=== PATIENT | male | born 1990 | race African-American/Black ===

== ENCOUNTER 2021-04-30 01:02 | Inpatient (IN) | payer OTHER ==
[~2021-04-30] VITALS: Ht 172.7 cm; Wt 49.0 kg
--- NOTE | 2021-04-30 01:10 | NUR ---
Pt BIB RA from [facility]. per EMS, tachycardia in 130s. pt is uncooperative. requesting orange juice and ice.
--- NOTE | 2021-04-30 01:16 | NUR ---
Dr. Gray at bedside, MSE in progress.
[2021-04-30 02:21] LABS: ABG BASE EXCESS 2.2 mmol/L; ABG PCO2 33.2 mmHg (35.0-45.0); ABG PH 7.495 (7.350-7.450); ABG PO2 74.1 mmHg (75.0-100.0); ABG SITE LEFT RADIAL; ABG TOTAL HEMOGLOBIN 13.2 G/dL (13.5-18.0); MetHb 0.2 % (0.0-1.5); VENT MODE Nasal Cannula
[2021-04-30] MEDS ORDERED: CEFTRIAXONE 1 G in IV DEXTROSE 5% 50 ML IV ONE (02:30)
[2021-04-30] MEDS ORDERED: IV NS 1000 ML 1,000 ML IV ONE (02:30)
[2021-04-30] MEDS ORDERED: AZITHROMYCIN IV 500 MG in IV DEXTROSE 5% 250 ML IV ONE (02:30)
[2021-04-30] MEDS ORDERED: MORPHINE SULFATE 2 MG/1 ML DISP.SYRIN IV ONE (02:45)
[2021-04-30] MEDS ORDERED: CEFTRIAXONE /D5W 50ML IVPB **ER PYXIS IV ONE (02:45)
[2021-04-30 02:49] LABS: CARBON DIOXIDE 25 mmol/L (21-32); CHLORIDE 92 mmol/L (98-107); CREATININE 1.4 mg/dL (0.6-1.3); GLUCOSE 145 mg/dL (74-106); POTASSIUM 3.6 mmol/L (3.5-5.1); UREA NITROGEN, BLOOD 27 mg/dL (7-18)
[2021-04-30] MEDS ORDERED: MORPHINE SULFATE 2 MG/1 ML DISP.SYRIN ONE (02:52)
[2021-04-30 03:01] LABS: ALANINE AMINOTRANSFERASE 14 U/L (16-63); ALKALINE PHOSPHATASE 583 U/L (50-136); ASPARTATE AMINOTRANSFERASE 12 U/L (15-37); BILIRUBIN,TOTAL 1.1 mg/dL (0.2-1.0); CREATINE KINASE, TOTAL 34 U/L (39-308); LACTATE DEHYDROGENASE 375 U/L (85-227); TOTAL PROTEIN, SERUM 9.1 g/dL (6.4-8.2)
[2021-04-30 03:16] LABS: HEMATOCRIT 40.7 % (36.7-47.1); MEAN CORPUSCULAR HEMOGLOBIN 32.2 uug (23.8-33.4); MEAN CORPUSCULAR VOLUME 96.9 fL (73.0-96.2); PLATELET COUNT (AUTO) 155 K/uL (152-348)
[2021-04-30] MEDS ORDERED: ACETAMINOPHEN ES 500 MG TABLET PO ONE (04:00)
[2021-04-30] MEDS ORDERED: AZITHROMYCIN 500MG/ D5W 250ML IVPB **ER PYXIS ONLY IV ONE (04:42)
[2021-04-30] MEDS ORDERED: ACETAMINOPHEN ES 500 MG TABLET ONE (04:42)
[2021-04-30] MEDS ORDERED: ONDANSETRON 4 MG/2 ML VIAL IV PRN (05:00)
[2021-04-30] MEDS ORDERED: ACETAMINOPHEN 325 MG TABLET PO PRN (05:00)
[2021-04-30] MEDS ORDERED: MAGNESIUM HYDROXIDE 30 ML LIQUID UDC PO PRN (05:00)
[2021-04-30] MEDS ORDERED: REMEDY ESSENTIAL ZINC PASTE 113 GM TP PRN (05:00)
[2021-04-30 05:33] LABS: *BILIRUBIN,URIN 1+ (NEGATIVE); *BLOOD, URINE NEGATIVE (NEGATIVE); *CLARITY,URINE HAZY (CLEAR); *COLOR,URINE AMBER (YELLOW); *KETONES,URINE 1+ (NEGATIVE); LEUKOCYTE ESTERASE ,URINE NEGATIVE (NEGATIVE); NITRITE, URINE NEGATIVE (NEGATIVE); PH,URINE 5.5 (5.0-8.0); UGLUCOSE NEGATIVE (NEGATIVE)
[2021-04-30 05:35] LABS: *AMPHETAMINE, URINE POSITIVE (NEGATIVE); *CANNABINOID, URINE NEGATIVE (NEGATIVE); *COCCAINE, URINE NEGATIVE (NEGATIVE); *OPIATE, URINE NEGATIVE (NEGATIVE); *PHENCYCLIDINE SCREEN,URINE NEGATIVE (NEGATIVE)
[2021-04-30 05:43] LABS: BACTERIA,URINE FEW /HPF (NONE SEEN); MUCUS,URINE MODERATE /LPF (0-FEW); RBC,URINE 0-3 /HPF (0-3); SQUAMOUS EPITHELIAL CELL,UR FEW /HPF (NONE SEEN); WBC,URINE 0-3 /HPF (0-3)
[2021-04-30 05:52] LABS: LYMPHOCYTES % (MANUAL) 34 % (20-40); MONOCYTES % (MANUAL) 39 % (2-10); NEUTROPHILS % (MANUAL) 27 % (42-75)
--- NOTE | 2021-04-30 07:09 | NUR ---
Report given to rafaela Mendez.
--- NOTE | 2021-04-30 08:08 | NUR ---
Pt. sleeping in bed, no distress noted, arouses easily, no complaints. Obtained sample for respiritory Pathogine profile, took to lab. Gave pt breakfast tray.
--- NOTE | 2021-04-30 08:33 | NUR ---
3rd call to give report, RN is "busy"
--- NOTE | 2021-04-30 09:08 | NUR ---
Gave report to BART De La Torre.
--- NOTE | 2021-04-30 10:00 | NUR ---
Received patient in bed sleeping. No sign of distress noted at this time. Patient is withdrawn and has a flat affect. pt refused to answer questions he just ignores and gives no response. IV back placed on patient's arm. Belongings list and vitals completed. Safety precautions are in place will continue to monitor.
[2021-04-30] MEDS: PANTOPRAZOLE SODIUM 40 MG TABLET.DR PO SCH (11:07)
[2021-04-30] MEDS: IV NS 1000 ML 1,000 ML IV PRN (11:38)
[2021-04-30 11:49] VITALS: BP 96/64
[2021-04-30 16:15] VITALS: BP 110/71
--- NOTE | 2021-04-30 18:47 | NUR ---
Patient left in bed. Pt is only communicative when he wants something otherwise he gives no responses. patient is a poor historian. All medications given as ordered. Safety measures implemented. Will endorse to oncoming nurse.
--- NOTE | 2021-04-30 19:00 | NUR ---
Received patient on bed, alert, no shortness of breath, no complaint of pain, with ongoing IVF NS !L at 75cc/hr.
[2021-04-30 20:22] VITALS: BP 108/64
[2021-04-30] MEDS: SULFAMETHOXAZOL/TRIMETHOPRI IV 10 ML in IV DEXTROSE 5% 250 ML IV SCH (22:00)
[2021-04-30] MEDS ORDERED: SULFAMETHOXAZOLE/TRIMETHOPRIM 10 ML VIAL IV ONE (23:30)
[2021-05-01 00:09] VITALS: BP 105/75
[2021-05-01] MEDS ORDERED: CEFTRIAXONE 1 G in IV DEXTROSE 5% 50 ML IV SCH (04:00)
[2021-05-01 04:50] VITALS: BP 111/72
[2021-05-01] MEDS ORDERED: AZITHROMYCIN IV 500 MG in IV DEXTROSE 5% 250 ML IV SCH (05:00)
[2021-05-01] MEDS: SULFAMETHOXAZOL/TRIMETHOPRI IV 10 ML in IV DEXTROSE 5% 250 ML IV SCH (05:17)
[2021-05-01] MEDS: PANTOPRAZOLE SODIUM 40 MG TABLET.DR PO SCH (06:32)
[2021-05-01 06:57] LABS: CREATININE 0.9 mg/dL (0.6-1.3); MAGNESIUM 1.8 mg/dL (1.8-2.4); PHOSPHOROUS 2.6 mg/dL (2.5-4.9); POTASSIUM 3.2 mmol/L (3.5-5.1)
--- NOTE | 2021-05-01 07:00 | NUR ---
Patient slept well, no chest pain and shortness of breath noted. On normal sinus rhythm. Offered fluids and snacks, tolerated well. No complaint of pain. Patient in fair condition.
[2021-05-01 07:18] LABS: HEMATOCRIT 30.6 % (36.7-47.1); MEAN CORPUSCULAR HEMOGLOBIN 31.8 uug (23.8-33.4); MEAN CORPUSCULAR VOLUME 95.3 fL (73.0-96.2); PLATELET COUNT (AUTO) 148 K/uL (152-348)
--- NOTE | 2021-05-01 08:00 | NUR ---
PT denies any c/o pain. Encouraged pt to use IS x 10 WA. Noted pt still coughing. Pt agreeable with plan of care. Awaiting PCR result.
[2021-05-01] MEDS ORDERED: DEXAMETHASONE SOD PHOSPHATE 10 MG INJ IV SCH (09:00)
[2021-05-01] MEDS ORDERED: POTASSIUM CHLORIDE 20 MEQ TAB.PRT.SR PO ONE (09:30)
[2021-05-01 12:00] VITALS: BP 112/68
[2021-05-01] MEDS ORDERED: SULFAMETHOXAZOL/TRIMETHOPRI IV 15 ML in IV DEXTROSE 5% 250 ML IV SCH (14:00)
[2021-05-01] MEDS ORDERED: SULFAMETHOXAZOL IV SCH (14:00)
[2021-05-01] MEDS ORDERED: DEXTROSE IV SCH (14:00)
[2021-05-01] MEDS ORDERED: TRIMETHOPRI IV SCH (14:00)
--- NOTE | 2021-05-01 14:30 | NUR ---
DR PALUMBO here to see patient. PCR resulted negative and notified DR PALUMBO.
[2021-05-01] MEDS: SULFAMETHOXAZOL/TRIMETHOPRI IV 20 ML in IV DEXTROSE 5% 500 ML IV SCH ×2 (14:56→22:36)
[2021-05-01 16:04] VITALS: BP 103/68
[2021-05-01] MEDS ORDERED: PIPERACILLIN SODIUM/TAZOBACTAM 4.5 G in IV DEXTROSE 5% 50 ML IV SCH ×2 (17:00→18:00)
--- NOTE | 2021-05-01 17:33 | NUR ---
Pt is in no acute distress. Call light is within reach
[2021-05-01] MEDS ORDERED: VANCOMYCIN IV 1,000 MG in IV DEXTROSE 5% 250 ML IV SCH ×2 (18:00→20:00)
--- NOTE | 2021-05-01 19:30 | NUR ---
Received pt awake, alert and orientedx4. Pt in no acute distress. Pt iv intact. safety and comfort provided. Will continue to monitor.
--- NOTE | 2021-05-01 20:00 | NUR ---
Pt Iv was pulled out. Pt in no acute distress.
[2021-05-01 20:21] VITALS: BP 95/68
--- NOTE | 2021-05-01 22:11 | NUR ---
2000H Vancocin IV missed not given because pt IV access was pulled out by the pt. Pt Vacocin IV also was discontinue by doctor.
[2021-05-01] MEDS: levoFLOXacin 500 MG TABLET PO SCH (22:35)
[2021-05-02] MEDS: IV NS 1000 ML 1,000 ML IV PRN ×2 (02:15→17:00)
[2021-05-02] MEDS ORDERED: CEFTRIAXONE 1 G VIAL ONE (02:57)
[2021-05-02] MEDS: CEFTRIAXONE 1 G in IV DEXTROSE 5% 50 ML IV SCH (03:33)
[2021-05-02 04:24] VITALS: BP 106/75
[2021-05-02] MEDS: SULFAMETHOXAZOL/TRIMETHOPRI IV 20 ML in IV DEXTROSE 5% 500 ML IV SCH ×3 (05:21→21:01)
[2021-05-02] MEDS: PANTOPRAZOLE SODIUM 40 MG TABLET.DR PO SCH (06:20)
--- NOTE | 2021-05-02 06:20 | NUR ---
Pt slept intermittently. Pt in no acute distress. Iv intact. Pt refused to take his Protonix. Pt sometimes is not communicative and withdrawn. Pt sometimes pretending to fall asleep but when you leave the room pt is awake and moving and changing the channel on his tv. Safety and comfort provided. All needs are met. Pt vital signs within normal limit. Will endorse to incoming nurse for continuity of care.
[2021-05-02 06:27] LABS: CREATININE 0.9 mg/dL (0.6-1.3)
[2021-05-02] MEDS: DEXAMETHASONE SOD PHOSPHATE 4 MG INJ IV SCH (08:15)
[2021-05-02 11:50] VITALS: BP 99/64
--- NOTE | 2021-05-02 13:16 | NUR ---
PATIENT SEEN AND EXAMINED BY DR CORCORAN WITH NEW ORDERS AND NOTED
[2021-05-02] MEDS: ENSURE ENLIVE (VAN) 240 ML LIQUID PO SCH ×2 (13:19→16:43)
[2021-05-02 13:26] LABS: MAGNESIUM 1.7 mg/dL (1.8-2.4); PHOSPHOROUS 3.4 mg/dL (2.5-4.9); URIC ACID 1.5 mg/dL (3.5-7.2)
[2021-05-02 13:48] LABS: THYROID STIMULATING HORMONE 0.427 mIU/mL (0.358-3.740)
--- NOTE | 2021-05-02 16:08 | NUR ---
Clinical Social Work Note: Pt. is a 30-year-old male who was brought into [facility] via EMS for chest pain per EMR. Per EMR, pt. is HIV positive. Upon SW consult, pt. is alert and oriented x4 (place, time, situation and self). Pt. presented with a dysphoric mood and congruent affect. Pt. presented with slow speech and did not provide appropriate eye contact. Pt. presented with an illogical thought process. Pt.s insight and judgment appear to be impaired. SW explored pt.s social support. Pt. stated he had no friends or family. SW explored pt.s current living situation. Pt. stated he has been homeless for a few years. SW offered pt. homeless resources and pt. accepted them. SW explored pt.s financial situation. Pt. stated he receives food stamps and general relief. SW explored if pt. is ambulatory. Pt. stated he is ambulatory. SW explored pt.s substance use hx. Pt. denied substance use, however pt's toxicology tested positive for amphetamines. SW explored pt.s psychiatric history. Pt. stated he has a history of depression. Pt. stated he has not been diagnosed by a doctor. Pt. denied visual/auditory hallucinations. Pt. denied suicidal and homicidal ideation. SW provided patient with a copy of the [facility] homeless directory which provides information on locations for hot meals, sack lunches, food pantries, and showers. SW provided a list of mental health clinics: [facility] [address] [place] [address], ; [facility] [address] [place] [address], ; [facility] [address] [place] [address], ; a list of medical clinics: [facility] [address], [place]. [place], ; [facility] [address], [place] [address]; [facility] [address] [place] [address], ; and a list of substance abuse programs: [facility] Substance Abuse Self-helpline ; [facility] ; [facility] ; [facility] ; [facility] ; [facility] [phone]; [facility] [phone]. Patient signed the homeless waiver form and a copy was placed in the chart.
[2021-05-02 16:28] VITALS: BP 118/62
--- NOTE | 2021-05-02 17:03 | NUR ---
PATIENT IN BED AWAKE ALERT AND ORIENTED AMBULATORY HE IS AWARE THAT HIS DOCTOR HAS ORDERED URINE FOR DIAGNOSTIC TEST NOTIFIED THE PATIENT MORE THAN 2 HOURS AGO BUT STILL NO URINE HE IS NOT COOPERATIVE WITH FLAT EFFECT LOW VOICE MUMBLING HIS WORDS WILL WILL CONTINUE TO ATTEMPT TO COLLECT URINE ORDERED HE HAS NO ADVERSE OR ALLERGIC REACTIONS FROM HIS ANTIBIOTICS ORDERED.WILL CONTINUE TO OBSERVE
--- NOTE | 2021-05-02 17:50 | NUR ---
MAG LEVEL IS 1.7 WITH REPLACEMENT ORDER AND NOTED.
[2021-05-02] MEDS: MAGNESIUM SULFATE/D5W 100 ML IV SCH ×2 (17:58→19:40)
--- NOTE | 2021-05-02 19:30 | NUR ---
Received patient in his room. Ambulating in his room. In no apparent distress. Denies any pain or SOB. IV site on right FA intact and patent. IVF infusing. Needs assessed and attended to. Safety measure initiated and call light within reached.
[2021-05-02 20:00] VITALS: BP 107/76
[2021-05-02] MEDS: levoFLOXacin 500 MG TABLET PO SCH (20:49)
[2021-05-03] MEDS: CEFTRIAXONE 1 G in IV DEXTROSE 5% 50 ML IV SCH (03:34)
[2021-05-03 04:00] VITALS: BP 104/62
[2021-05-03] MEDS: SULFAMETHOXAZOL/TRIMETHOPRI IV 20 ML in IV DEXTROSE 5% 500 ML IV SCH ×3 (05:34→21:38)
--- NOTE | 2021-05-03 05:50 | NUR ---
AAOX4. In no acute distress. Denies any pain or SOB. IV site on right FA intact and patent. No adverse reaction noted from IV antibiotics. Needs attended to and met. Safety measure maintained and call light within reached.
[2021-05-03] MEDS: PANTOPRAZOLE SODIUM 40 MG TABLET.DR PO SCH (06:04)
[2021-05-03 06:41] LABS: HEMATOCRIT 32.6 % (36.7-47.1); MEAN CORPUSCULAR HEMOGLOBIN 31.8 uug (23.8-33.4); MEAN CORPUSCULAR VOLUME 95.2 fL (73.0-96.2); PLATELET COUNT (AUTO) 296 K/uL (152-348)
[2021-05-03 07:22] LABS: CREATININE 0.9 mg/dL (0.6-1.3); POTASSIUM 5.2 mmol/L (3.5-5.1)
[2021-05-03] MEDS: DEXAMETHASONE SOD PHOSPHATE 4 MG INJ IV SCH (08:22)
[2021-05-03] MEDS: ENSURE ENLIVE (VAN) 240 ML LIQUID PO SCH ×3 (09:19→16:18)
--- NOTE | 2021-05-03 09:21 | NUR ---
PATIENT IS VERY UNCOOPERATIVE IMPULSIVE STANDING IN THE MIDDLE OF THE HALLWAY DRAGGING HIS IV POLE INSISTING ON GOING INTO THE SHOWER REFUSED TO WAIT FOR THE NURSE TO BE ABLE TO ASSIST HIM IN SETTING UP THE SHOWER ROOM AND SECURING HIS IV I WAS ABLE TO DISCONNECT HIM AND RIGHT AWAY HE DASHED INTO THE SHOWER ROOM PATIENT REMINDED THAT HE NEEDED TO INFORM THE NURSE OF HIS NEEDS AND WILL ALLOW US TO BE ABLE TO SAFELY ASSIST HIM TO ENSURE SAFETY. FLAT EFFECT WILL CONTINUE TO OBSERVE.
--- NOTE | 2021-05-03 10:00 | NUR ---
CAME OUT OF THE ROOM AND WENT INTO THE SUPPLY CLOSET TOOK A HANDFUL OF LOTION AND SHAMPOO CAME TO THE NURSES STATED SHOUTING AND DEMANDING FOR JUICE PATIENT WANTS JUICES ALMOST EVERY HOUR DOES NOT LIKE TO DRINK WATER SO ENCOURAGED AND INSTRUCTED PATIENT THAT HE HAS TO DRINK WATER SOMETIMES CANNOT DRINK ONLY JUICE SO HE TURNED AROUND AND SAID TO ME " AND I WANT ICE NOW" SO REMINDED PATIENT THAT HE NEEDS TO BE CAUTIOEUS WHILE SPEAKING TO SOMEONE NOTIFIED HIM THAT I WILL BRING HIM THE ICE BUT HAS TO TRY TO ASK NICER CONTINUES TO HAVE FLAT EFFECT NO RESPONSE JUST WENT TO HIS ROOM AND I CONNECTED HIS IVF AT THIS TIME WHICH I HAD DISCONNECTED EARLIER FOR HIS SHOWER BUT WHEN I ATTEMPTED TO RECONNECT AFTER THE SHOWER HE HAD REFUSED.BEING VERY DIFFICULT BUT WILL TRY TO REASON WITH HIM AND PROVIDE HOME WITH SAFE AND THERAPEUTIC ENVIRONMENT AT THIS TIME.
[2021-05-03 12:00] VITALS: BP 90/59
[2021-05-03 16:00] VITALS: BP 101/64
--- NOTE | 2021-05-03 17:00 | NUR ---
PATIENT HAS BEEN CALMER STILL WITH FLAT EFFECT BUT IS COOPERATIVE CONTINUE ON IV ATB ORDERED WITH NO ADVERSE OR ALLERGIC REACTIONS AT THIS TIME WILL CONTINUE TO OBSERVE.
[2021-05-03] MEDS: IV NS 1000 ML 1,000 ML IV PRN (17:59)
--- NOTE | 2021-05-03 19:30 | NUR ---
Received pt awake. Pt in no acute distress. Iv intact and patent. IV infusing. Safety and comfort provided. Will continue to monitor.
[2021-05-03 20:06] VITALS: BP 97/60
[2021-05-03] MEDS: levoFLOXacin 500 MG TABLET PO SCH (21:00)
--- NOTE | 2021-05-03 22:00 | NUR ---
Pt refused his Levaquin medication. Will continue to monitor.
[2021-05-04] MEDS: CEFTRIAXONE 1 G in IV DEXTROSE 5% 50 ML IV SCH (03:24)
[2021-05-04 04:40] VITALS: BP 106/60
[2021-05-04] MEDS: SULFAMETHOXAZOL/TRIMETHOPRI IV 20 ML in IV DEXTROSE 5% 500 ML IV SCH (05:05)
[2021-05-04] MEDS: PANTOPRAZOLE SODIUM 40 MG TABLET.DR PO SCH (06:17)
--- NOTE | 2021-05-04 06:26 | NUR ---
Pt slept intermittently. Pt in no acute distress. . Iv intact. Prescribed medication given and pt tolerated it well. Safety and comfort provided. All needs are met. Vital signs within normal limit. Will endorse to incoming nurse for continuity of care.
[2021-05-04 06:41] LABS: HEMATOCRIT 31.7 % (36.7-47.1); MEAN CORPUSCULAR HEMOGLOBIN 31.6 uug (23.8-33.4); MEAN CORPUSCULAR VOLUME 94.7 fL (73.0-96.2); PLATELET COUNT (AUTO) 406 K/uL (152-348)
[2021-05-04 06:59] LABS: BILIRUBIN,TOTAL 0.2 mg/dL (0.2-1.0); CREATININE 0.9 mg/dL (0.6-1.3); MAGNESIUM 1.3 mg/dL (1.8-2.4); PHOSPHOROUS 2.4 mg/dL (2.5-4.9); POTASSIUM 4.5 mmol/L (3.5-5.1); TOTAL PROTEIN, SERUM 7.4 g/dL (6.4-8.2)
[2021-05-04 08:36] LABS: BAND % (MANUAL) 3 % (0-10); EOSINOPHILS % (MANUAL) 1 % (0-8); LYMPHOCYTES % (MANUAL) 19 % (20-40); MONOCYTES % (MANUAL) 17 % (2-10); NEUTROPHILS % (MANUAL) 60 % (42-75)
[2021-05-04] MEDS: DEXAMETHASONE SOD PHOSPHATE 4 MG INJ IV SCH (08:48)
[2021-05-04] MEDS: ENSURE ENLIVE (VAN) 240 ML LIQUID PO SCH (08:50)
[2021-05-04] MEDS ORDERED: MAGNESIUM OXIDE 400 MG TABLET PO ONE (09:30)
--- NOTE | 2021-05-04 09:38 | NUR ---
patient stating i need to leave, explained there is no discharge order and he would have to sign an ama form in order to leave. Per patient i need to leave give me the form. Form given to patient, explained risks, patient states that is fine. IV site removed no bleeding, patient given donation clothes and assisted downstairs, upon discharge v/s wnl, afebrile, rr even and non-labored, 0 c/o chest pain.
[2021-05-04] MEDS ORDERED: SODIUM PHOSPHATE MM 7.5 MMOL in IV NORMAL SALINE 100 ML IV ONE (11:00)
== END 2021-05-04 09:45 | disposition left against medical advice (07) | DRG 720 ==
LOC: ER 01:04 → TELE3 09:24 → MEDSURG3 05-01 10:50
PROVIDERS: ADMIT Student in an Organized Health Care Education/Training Program
DX: A41.9 Sepsis, unspecified organism (principal); N17.0 Acute kidney failure with tubular necrosis; G92.8 Other toxic encephalopathy; E43 Unspecified severe protein-calorie malnutrition; J15.9 Unspecified bacterial pneumonia; E87.1 Hypo-osmolality and hyponatremia; D63.8 Anemia in other chronic diseases classified elsewhere; E83.39 Other disorders of phosphorus metabolism; K76.0 Fatty (change of) liver, not elsewhere classified; N17.9 Acute kidney failure, unspecified; Z20.822 Contact with and (suspected) exposure to COVID-19; D72.819 Decreased white blood cell count, unspecified; M89.9 Disorder of bone, unspecified; I70.0 Atherosclerosis of aorta; Z59.00 Homelessness unspecified; Z91.14 Patient's other noncompliance with medication regimen; F17.210 Nicotine dependence, cigarettes, uncomplicated; D64.9 Anemia, unspecified; F19.10 Other psychoactive substance abuse, uncomplicated; E83.42 Hypomagnesemia; E87.6 Hypokalemia; F15.10 Other stimulant abuse, uncomplicated; F99 Mental disorder, not otherwise specified
CPT/HCPCS: 36415; 36600; 70030-TC; 71045; 76705; 82533; 83605; 83615; 83735; 83935; 84100; 84300; 84443; 84484; 84550; 85025; 85730; 86140; 87040; 87400; 87806; 93005; A4663; A9150; G0378; J0456; J0696; J1100; J2270; J2543; J3370; J3475; J3490; J7030; J7060; U0003